=== PATIENT | male | born 1970 | race Caucasian/White ===

== ENCOUNTER 2018-09-21 14:13 | Emergency (ER) | payer MEDICARE ==
[2018-09-21 14:17] VITALS: BMI 25.9
[2018-09-21] MEDS ORDERED: XARELTO15 MG PO (14:19)
[2018-09-21] MEDS ORDERED: DILAUDID4 MG PO (15:09)
[2018-09-21 15:32] VITALS: BP 138/84
== END 2018-09-21 15:36 | disposition home or self-care (01) ==
LOC: D.ER 14:13
DX: H53.8 Other visual disturbances (principal); M54.5 Low back pain

== ENCOUNTER 2019-01-30 15:49 | Emergency (ER) | payer MEDICARE ==
[~2019-01-30] VITALS: Ht 172.7 cm; Wt 77.3 kg
[~2019-01-30 15:49] MED LIST: DILAUDID4 MG PO; XARELTO15 MG PO
[2019-01-30 16:22] VITALS: Ht 172.7 cm; Wt 77.3 kg
[2019-01-30] MEDS ORDERED: TORADOL10 MG PO (18:28)
[2019-01-30 19:17] VITALS: BP 118/96
== END 2019-01-30 19:17 | disposition home or self-care (01) ==
LOC: D.ER 15:49
DX: S43.101A Unspecified dislocation of right acromioclavicular joint, initial encounter (principal); X50.0XXA Overexertion from strenuous movement or load, initial encounter; F17.210 Nicotine dependence, cigarettes, uncomplicated; E78.5 Hyperlipidemia, unspecified; S46.911A Strain of unspecified muscle, fascia and tendon at shoulder and upper arm level, right arm, initial encounter